=== PATIENT | male | born 1955 | race Caucasian/White ===

== ENCOUNTER 2018-01-26 07:31 | Day surgery (SDC) | payer BC, MEDICARE ==
[2018-01-24 10:35] VITALS: BMI 32.4
[~2018-01-26 07:31] MED LIST: LACTATED RINGERS 1,000 ML IV SCH
[2018-01-26 07:42] VITALS: RESP 16; TEMP 97.8
[2018-01-26 07:54] LABS: Glucose,Whole Blood 126 mg/dL (75-99)
[2018-01-26] MEDS ORDERED: PROPOFOL 10 MG/ML 20 ML VIAL IV ONE (08:41)
[2018-01-26] MEDS ORDERED: LIDOCAINE 1% INJ 10MG/ML (20 ML MDV) ONE (08:41)
--- NOTE | 2018-01-26 08:59 | P.PCN ---
Date of Procedure: 01/26/18 Procedure(s) Performed: BRIEF HISTORY: Patient is a 62-year-old [id number] white male, scheduled for an elective colonoscopy as a part of screening for colorectal neoplasia. PROCEDURE PERFORMED: Colonoscopy with snare polypectomy. PREOPERATIVE DIAGNOSIS: Screening for colon cancer. IV sedation per Anesthesia. PROCEDURE: After informed consent was obtained, the patient, was brought into the endoscopy unit. IV sedation was administered by Anesthesia under continuous monitoring. Digital rectal examination was normal. Initially the Olympus CF- 160 flexible video colonoscope was then inserted in the rectum, gradually advanced into the cecum without any difficulty. Careful examination was performed as the scope was gradually being withdrawn. Ileocecal valve and the appendiceal orifice were visualized and appeared normal. Prep was excellent. Mucosa of the cecum, ascending colon, appeared normal. In the transverse colon there was a 5 mm sessile polyp that was removed by snare polypectomy. Sigmoid: There was a 5 mm polyp that was removed by snare polypectomy. Rest of the transverse colon, descending colon, sigmoid colon, and rectum appeared normal. Retroflexion was performed in the rectum and no lesions were seen. The patient tolerated the procedure well. IMPRESSION: 5 mm transverse colon polyp status post polypectomy 5 mm; polyp status post polypectomy RECOMMENDATIONS: Findings of this examination were discussed with the patient as well as his family. He was advised to follow with the biopsy results. If the biopsy shows adenoma he can have a repeat colonoscopy in 5 years.
[2018-01-26 09:31] VITALS: BP 132/81; PULSE 80
== END 2018-01-26 10:00 | disposition home or self-care (01) ==
LOC: ORWHC2ENDO 07:31
PROVIDERS: ATTEND Internal Medicine Gastroenterology
DX: Z12.11 Encounter for screening for malignant neoplasm of colon (principal); D12.3 Benign neoplasm of transverse colon; K63.5 Polyp of colon; E78.5 Hyperlipidemia, unspecified; E11.9 Type 2 diabetes mellitus without complications; Z79.899 Other long term (current) drug therapy; Z88.8 Allergy status to other drugs, medicaments and biological substances
CPT/HCPCS: 88305; 45385; J2001; J2704

== ENCOUNTER 2018-12-25 13:27 | Inpatient (IN) | payer BC, MEDICARE ==
--- NOTE | 2018-12-25 13:13 | CT ---
EXAMINATION TYPE: CT abdomen pelvis w con DATE OF EXAM: 12/25/2018 COMPARISON: NONE HISTORY: 63-year-old male with right lower quadrant pain x 3 weeks. TECHNIQUE: Contiguous axial scanning of the abdomen and pelvis following administration of 100 ml Iso valentina 300 IV contrast. Delayed images through the kidneys and coronal/sagittal reconstructions perform ed. CT DLP: 1176 mGycm Automated exposure control for dose reduction was used. FINDINGS: Heart normal size with trace anterior pericardial fluid. Lung bases clear without pleural effusion. Liver shows low-density suggesting underlying fatty infiltration. Portal venous system is patent. No biliary ductal dilatation. Gallbladder, adrenal glands, kidneys, spleen, and pancreas appear within normal limits. Scattered [id number] atelectatic calcifications infrarenal abdominal aorta without aneurysm. No dilated small bowel, free fluid, or free air No mesenteric or retroperitoneal lymphadenopathy. Extensive focal inflammatory thickening and fluid within the right lower quadrant measuring 4.0 x 3.9 cm. This is along the inferior aspect of the cecum and likely arises from the appendix. Prominent but nonenlarged 5 mm right lower quadrant mesenteric lymph node. No significant stool burden. No other pericolonic inflammatory change. Prostate gland is very bulky and enlarged measuring 6.6 cm wide and 4.6 cm craniocaudal with central calcifications. Bladder nondistended. No abnormal fluid collection the pelvis or pelvic lymphadenopat hy. Bones: Facet arthropathy lower lumbar spine. Mild degenerative change of the hips. IMPRESSION: 1. ABNORMAL THICKENED SOFT TISSUE ALONG THE INFERIOR CECUM WITH FOCAL PHLEGMON IN THE EXPECTED REGION OF THE APPENDIX. INFLAMMATORY COLON CANCER WITH PHLEGMON WELL ACUTE APPENDICITIS WITH EARLY OR GANIZING ABSCESS ARE CONSIDERATIONS. NO FREE FLUID OR FREE AIR. 2. VERY BULKY AND ENLARGED PROSTATE GLAND MEASURING 6.6 CM. CORRELATING WITH PSA VALUES AND PATIENT'S SYMPTOMS.
--- NOTE | 2018-12-25 14:22 | ED ---
Abdominal Pain HPI <Mitch Butt - Last Filed: 12/25/18 15:42> - General Source: patient Mode of arrival: ambulatory Limitations: no limitations <Leland Negro - Last Filed: 12/25/18 16:31> - General Chief Complaint: Abdominal Pain Stated Complaint: Abd Pain-from CT Time Seen by Provider: 12/25/18 14:10 - History of Present Illness Initial Comments: Patient is a 63-year-old male presenting to the emergency department with a chief complaint of abdominal pain. Patient came to the hospital to obtain a CT of his abdomen and was referred to come to the ED for further evaluation by the radiologist. Patient has ongoing right lower quadrant pain for about 3 weeks. Patient reports the pain is dull most of the time however it is exacerbated with specific positional movements. Patient reports intermittent nausea but no vomiting or diarrhea. Patient reports over the past 2 weeks he has been is having intermittent constipation which has never happened before. Patient reports the pain is not related to oral intake. Patient denies recent weight loss, night sweats fevers or chills. Patient reports he had a colonoscopy last year with no significant findings. (Leland Negro) - Related Data Home Medications Medication Instructions Recorded Confirmed Ascorbic Acid [Vitamin C] 2,000 mg PO DAILY 01/24/18 12/25/18 Atorvastatin [Lipitor] 20 mg PO HS 01/24/18 12/25/18 Garlic 1 tab PO DAILY 01/24/18 12/25/18 Super Beta Prostate 2 cap PO BID 01/24/18 12/25/18 Ubidecarenone [Co Q-10] 200 mg PO HS 01/24/18 12/25/18 Dapagliflozin Propanediol [Farxiga] 10 mg PO DAILY 12/25/18 12/25/18 Allergies Allergy/AdvReac Type Severity Reaction Status Date / Time metformin AdvReac Nausea & Verified 12/25/18 14:29 Vomiting & Diarrhea Review of Systems ROS Other: All systems not noted in ROS Statement are negative. <Mitch Butt - Last Filed: 12/25/18 15:42> ROS Other: All systems not noted in ROS Statement are negative. <Leland Negro - Last Filed: 12/25/18 16:31> ROS Statement: Those systems with pertinent positive or pertinent negative responses have been documented in the HPI. Past Medical History Past Medical History: Diabetes Mellitus, Hyperlipidemia History of Any Multi-Drug Resistant Organisms: None Reported Past Surgical History: Orthopedic Surgery Additional Past Surgical History / Comment(s): PLATE TO LEFT LEG AND THEN REMOVE D. CERVICAL FUSION X 3. RT SHOULDER X 3 THEN REPLACEMENT. LT SHOULDER X 4 AND REVERSE REPLACEMENT. COLLAR BONE SX. COLONOSCOPY Past Anesthesia/Blood Transfusion Reactions: No Reported Reaction Past Psychological History: No Psychological Hx Reported Smoking Status: Former smoker Past Alcohol Use History: None Reported Past Drug Use History: None Reported - Past Family History Father Family Medical History: Cancer <Leland Negro - Last Filed: 12/25/18 16:31> General Exam Limitations: no limitations <Leland Negro - Last Filed: 12/25/18 16:31> Course Vital Signs 12/25/18 13:33 Temperature 97.7 F Pulse Rate 99 Respiratory 18 Rate Blood Pressure 157/106 O2 Sat by Pulse 97 Oximetry Medical Decision Making - Lab Data Result diagrams: 12/25/18 14:39 12/25/18 14:39 <Mitch Butt - Last Filed: 12/25/18 15:42> - Lab Data Result diagrams: 12/25/18 14:39 12/25/18 14:39 <Leland Negro - Last Filed: 12/25/18 16:31> - Medical Decision Making Patient reevaluated by myself, Dr. Butt. Patient does have mild tenderness right lower quadrant. Patient resting comfortably in bed. Patient updated on results and plan. Case was discussed in detail with Dr. Irving, who will consult and recommends medical admission. She is comfortable with [facility] for antibiotics. She requests CVA, alpha-fetoprotein, and PSA. Dr. No has been paged for admission. Case was also discussed with Dr. No, who will admit. Covering for Dr. Emily Gaston. (Mitch Butt) - Lab Data Lab Results 12/25/18 12/25/18 12/25/18 Range/Units 14:39 14:39 14:39 WBC 19.7 H (3.8-10.6) k/uL RBC 5.09 (4.30-5.90) m/uL Hgb 16.6 (13.0-17.5) gm/dL Hct 49.0 (39.0-53.0) % MCV 96.3 (80.0-100.0) fL MCH 32.6 (25.0-35.0) pg MCHC 33.9 (31.0-37.0) g/dL RDW 12.0 (11.5-15.5) % Plt Count 341 (150-450) k/uL Neutrophils % 83 % Lymphocytes % 8 % Monocytes % 5 % Eosinophils % 1 % Basophils % 2 % Neutrophils # 16.3 H (1.3-7.7) k/uL Lymphocytes # 1.5 (1.0-4.8) k/uL Monocytes # 0.9 (0-1.0) k/uL Eosinophils # 0.2 (0-0.7) k/uL Basophils # 0.4 H (0-0.2) k/uL Sodium 137 (137-145) mmol/L Potassium 5.2 H (3.5-5.1) mmol/L Chloride 101 (98-107) mmol/L Carbon Dioxide 24 (22-30) mmol/L Anion Gap 12 mmol/L BUN 15 (9-20) mg/dL Creatinine 0.75 (0.66-1.25) mg/dL Est GFR (CKD-EPI)AfAm >90 (>60 ml/min/1.73 sqM) Est GFR (CKD-EPI)NonAf >90 (>60 ml/min/1.73 sqM) Glucose 125 H (74-99) mg/dL Plasma Lactic Acid Del 1.8 (0.7-2.0) mmol/L Calcium 9.4 (8.4-10.2) mg/dL Total Bilirubin 1.1 (0.2-1.3) mg/dL AST 41 (17-59) U/L ALT 38 (21-72) U/L Alkaline Phosphatase 65 (38-126) U/L Total Protein 7.8 (6.3-8.2) g/dL Albumin 4.0 (3.5-5.0) g/dL Urine Color Urine Appearance (Clear) Urine pH (5.0-8.0) Ur Specific [place] (1.001-1.035) Urine Protein (Negative) Urine Glucose (UA) (Negative) Urine Ketones (Negative) Urine Blood (Negative) Urine Nitrite (Negative) Urine Bilirubin (Negative) Urine Urobilinogen (<2.0) mg/dL Ur Leukocyte Esterase (Negative) 12/25/18 Range/Units 15:10 WBC (3.8-10.6) k/uL RBC (4.30-5.90) m/uL Hgb (13.0-17.5) gm/dL Hct (39.0-53.0) % MCV (80.0-100.0) fL MCH (25.0-35.0) pg MCHC (31.0-37.0) g/dL RDW (11.5-15.5) % Plt Count (150-450) k/uL Neutrophils % % Lymphocytes % % Monocytes % % Eosinophils % % Basophils % % Neutrophils # (1.3-7.7) k/uL Lymphocytes # (1.0-4.8) k/uL Monocytes # (0-1.0) k/uL Eosinophils # (0-0.7) k/uL Basophils # (0-0.2) k/uL Sodium (137-145) mmol/L Potassium (3.5-5.1) mmol/L Chloride (98-107) mmol/L Carbon Dioxide (22-30) mmol/L Anion Gap mmol/L BUN (9-20) mg/dL Creatinine (0.66-1.25) mg/dL Est GFR (CKD-EPI)AfAm (>60 ml/min/1.73 sqM) Est GFR (CKD-EPI)NonAf (>60 ml/min/1.73 sqM) Glucose (74-99) mg/dL Plasma Lactic Acid Del (0.7-2.0) mmol/L Calcium (8.4-10.2) mg/dL Total Bilirubin (0.2-1.3) mg/dL AST (17-59) U/L ALT (21-72) U/L Alkaline Phosphatase (38-126) U/L Total Protein (6.3-8.2) g/dL Albumin (3.5-5.0) g/dL Urine Color Light Yellow Urine Appearance Clear (Clear) Urine pH 6.0 (5.0-8.0) Ur Specific [place] >1.050 H (1.001-1.035) Urine Protein Negative (Negative) Urine Glucose (UA) 4+ H (Negative) Urine Ketones 1+ H (Negative) Urine Blood Negative (Negative) Urine Nitrite Negative (Negative) Urine Bilirubin Negative (Negative) Urine Urobilinogen <2.0 (<2.0) mg/dL Ur Leukocyte Esterase Negative (Negative) Disposition <Mitch Butt - Last Filed: 12/25/18 15:42> Is patient prescribed a controlled substance at d/c from ED?: No Time of Disposition: 16:31 <Leland Negro - Last Filed: 12/25/18 16:31> Clinical Impression: Acute phlegmonous appendicitis Disposition: ADMITTED IP TO THIS HOSP Condition: Stable Instructions (If sedation given, give patient instructions): Acute Abdominal Pain (DC) Additional Instructions: Patient will be admitted Referrals: Max Pickering DO [Primary Care Provider] - 1-2 days
[2018-12-25] MEDS ORDERED: AMPICILLIN-SULBACTAM 3 GM in SODIUM CHLORIDE 0.9% 100 ML IVPB STA (14:52)
[2018-12-25 14:53] LABS: Basophils # (A) 0.4 k/uL (0-0.2); Basophils % (A) 2 %; Eosinophils # (A) 0.2 k/uL (0-0.7); Eosinophils % (A) 1 %; HGB 16.6 gm/dL (13.0-17.5); Lymphocytes # (A) 1.5 k/uL (1.0-4.8); Lymphocytes % (A) 8 %; MCH 32.6 pg (25.0-35.0); MCHC 33.9 g/dL (31.0-37.0); MCV 96.3 fL (80.0-100.0); Mean Platelet Volume 6.2; Monocytes # (A) 0.9 k/uL (0-1.0); Monocytes % (A) 5 %; Neutrophils # (A) 16.3 k/uL (1.3-7.7); Neutrophils % (A) 83 %; Platelet Count 341 k/uL (150-450); RBC 5.09 m/uL (4.30-5.90); WBC 19.7 k/uL (3.8-10.6)
[2018-12-25 14:58] LABS: ALT 38 U/L (21-72); AST 41 U/L (17-59); African American GFR (CKD) >90 (>60 ml/min/1.73 sqM); Alkaline Phosphatase 65 U/L (38-126); Anion Gap 12 mmol/L; Blood Urea Nitrogen 15 mg/dL (9-20); Calcium 9.4 mg/dL (8.4-10.2); Carbon Dioxide 24 mmol/L (22-30); Chloride 101 mmol/L (98-107); Glucose 125 mg/dL (74-99); Potassium 5.2 mmol/L (3.5-5.1); Sodium 137 mmol/L (137-145); Total Bilirubin 1.1 mg/dL (0.2-1.3); Total Protein 7.8 g/dL (6.3-8.2)
[2018-12-25 15:28] LABS: Appearance,Urine Clear (Clear); Bilirubin,Urine Negative (Negative); Blood,Urine Negative (Negative); Color,Urine Light Yellow; Glucose,Urine (UA) 4+ (Negative); Ketones,Urine 1+ (Negative); Leukocyte Esterase,Urine Negative (Negative); Nitrite,Urine Negative (Negative); Protein,Urine Negative (Negative); Urobilinogen,Urine <2.0 mg/dL (<2.0)
[2018-12-25 16:20] LABS: Specific Gravity,Urine >1.050 (1.001-1.035)
[2018-12-25] MEDS ORDERED: MORPHINE SULFATE 4 MG/ML SYRINGE IV PRN (16:29)
[2018-12-25] MEDS ORDERED: HYDROmorphone 0.5 MG/0.5 ML SYRINGE IVP PRN (16:29)
[2018-12-25] MEDS ORDERED: NALOXONE 0.4 MG/ML 1 ML VIAL IV PRN (16:29)
[2018-12-25] MEDS ORDERED: ACETAMINOPHEN TAB 325 MG TAB PO PRN (16:29)
[2018-12-25] MEDS ORDERED: IBUPROFEN 400 MG TAB PO PRN (16:29)
[2018-12-25] MEDS: SODIUM CHLORIDE 0.9% 1,000 ML IV SCH (17:49)
[2018-12-25] MEDS ORDERED: TEMAZEPAM 15 MG CAP PO PRN (18:44)
[2018-12-25] MEDS ORDERED: ALPRAZolam 0.25 MG TAB PO PRN (18:44)
[2018-12-25] MEDS ORDERED: HYDROcodone/APAP 5-325MG 1 EACH TAB PO PRN (18:44)
[2018-12-25] MEDS ORDERED: NON FORMULARY DRUG (Ubidecarenone [Co Q-10] 200 MG) PO SCH (21:00)
[2018-12-25] MEDS ORDERED: SUPER BETA PROSTATE PO SCH (21:00)
[2018-12-25] MEDS: ATORVASTATIN 20 MG TAB PO SCH (21:02)
[2018-12-25] MEDS: PANTOPRAZOLE 40 MG/10 ML VIAL IVP SCH (21:02)
[2018-12-25] MEDS: HEPARIN SODIUM,PORCINE 5,000 UNIT/ML 1 ML VIAL SQ SCH (21:02)
--- NOTE | 2018-12-25 23:07 | HP ---
HISTORY AND PHYSICAL DATE OF SERVICE: 12/25/2018 CHIEF COMPLAINT: Abdominal pain. HISTORY OF PRESENT ILLNESS: This 63 -year-old gentleman with a past medical history of diabetes, hyperlipidemia, history of DJD, being followed Dr. Pickering in the outpatient setting, complaining of right lower quadrant abdominal pain for the last 3 weeks. The pain was increasing in intensity. Patient was initially given outpatient laxatives. Because of lack of improvement, the patient was referred to [facility] Emergency Room and was admitted for further evaluation and treatment. The evaluation in the ER showed white count elevated to 19.7, sodium 137, potassium 5.2. Broad-spectrum IV antibiotics initiated. CT scan showed abnormal thickened soft tissue loop along the inferior cecum with focal phlegmon. The possibilities of lung cancer, also appendicitis with organized abscess also noted. The patient also noted enlarged prostate gland also. The patient did have a colonoscopy with polypectomy about 1 year ago. There is no history of fever, rigors or chills. No history of headache, loss of consciousness or seizures. PAST MEDICAL HISTORY: History of diabetes, hyperlipidemia, history of DJD. MEDICATIONS: Home medications are: 1. Coenzyme Q 200 mg q.h.s. 2. Farxiga 10 mg p.o. daily. 3. Lipitor 20 mg. 4. Vitamin C 2000 g daily. 5. Super beta prostate 2 caps b.i.d. 6. Garlic 1 tablet p.o. b.i.d.. ALLERGIES: METFORMIN. FAMILY HISTORY: History of cancer in the family. SOCIAL HISTORY: Previous history of smoking. No history of current smoking or alcohol intake. REVIEW OF SYSTEMS: ENT: No diminished vision. No diminished hearing. CARDIOVASCULAR: No angina or palpitations. RESPIRATIONS: No cough or hemoptysis. GI: As mentioned earlier. as mentioned earlier. NERVOUS SYSTEM: No numbness or weakness. ALLERGY/IMMUNOLOGY: No asthma or hayfever. MUSCULOSKELETAL as mentioned earlier. HEMATOLOGY/ONCOLOGY: No history of anemia. ENDOCRINE as mentioned earlier, diabetes. CONSTITUTIONAL: As mentioned earlier. DERMATOLOGY: Negative. RHEUMATOLOGY: Negative. PSYCHIATRY: As mentioned earlier. PHYSICAL EXAM: Patient is alert and oriented times three. Pulse 98, blood pressure 150/90, respirations 16, temperature 99 degrees, pulse ox 94% on room air. HEENT: Conjunctivae normal. Oral mucosa moist. NECK is no jugular venous distention. No carotid bruit. No lymph node enlargement. CARDIOVASCULAR: S1, S2 muffled. RESPIRATION: Breath sounds diminished in the bases. A few scattered rhonchi and crackles. ABDOMEN: Soft. Mild diffuse distention. Mild diffuse tenderness especially in the right lower quadrant. No guarding. No rebound tenderness. LEGS no edema. No swelling. NERVOUS SYSTEM: Higher functions as mentioned earlier. Moves all four limbs. No focal deficits. LYMPHATICS: No lymph nodes palpable in the neck, axillae or groin. SKIN: No ulcer. No rash. No bleeding. JOINTS: No active deforming arthropathy. LABS: WBC 19.7, hemoglobin 16.6. ASSESSMENT: 1. Right lower quadrant abdominal pain with abdominal CT scan showing possibly appendicitis with abscess. 2. Rule out chronic cancer with cancer with focal phlegmon. 3. Increased WBC. 4. Increased potassium. 5. Diabetes mellitus type 2. 6. Hyperlipidemia. 7. History of degenerative joint disease. 8. Remote history of nicotine dependence. RECOMMENDATIONS AND DISCUSSION: In this 63-year-old gentleman who presented with multiple medical issues, we will monitor the patient closely, continue the current management and symptomatic treatment. We will initiate broad-spectrum IV antibiotics, symptomatic treatment. Surgical evaluation. Obtain cultures. The prognosis guarded because of multiple complex medical issues. Further recommendations to follow. A copy of dictation being forwarded to Dr. Pickering who is the primary physician. DVT prophylaxis. Incentive spirometer. See orders for details. MMODL / IJN: [id number] /
[2018-12-25] MEDS: PIPERACILLIN-TAZOBACTAM 3.375 GM in SODIUM CHLORIDE 0.9% 100 ML IVPB SCH (23:59)
[2018-12-26 00:54] LABS: Alpha Fetoprotein, Tumor Mkr 3.6 ng/mL (0.0-7.9); Carcinoembryonic Antigen 1.1 ng/mL (0.0-4.9)
[2018-12-26] MEDS: SODIUM CHLORIDE 0.9% 1,000 ML IV SCH ×2 (04:11→17:35)
[2018-12-26] MEDS: NON FORMULARY DRUG (Dapagliflozin Propanediol [Farxiga] 10 MG) PO SCH (07:53)
[2018-12-26] MEDS: PIPERACILLIN-TAZOBACTAM 3.375 GM in SODIUM CHLORIDE 0.9% 100 ML IVPB SCH ×2 (07:53→17:34)
[2018-12-26] MEDS: ASCORBIC ACID 500 MG TAB PO SCH (07:54)
[2018-12-26] MEDS: HEPARIN SODIUM,PORCINE 5,000 UNIT/ML 1 ML VIAL SQ SCH ×2 (07:54→20:28)
[2018-12-26] MEDS: PANTOPRAZOLE 40 MG/10 ML VIAL IVP SCH (07:54)
[2018-12-26 08:54] LABS: Basophils # (A) 0.2 k/uL (0-0.2); Basophils % (A) 1 %; Eosinophils # (A) 0.3 k/uL (0-0.7); Eosinophils % (A) 2 %; HCT 47.9 % (39.0-53.0); HGB 16.1 gm/dL (13.0-17.5); Lymphocytes # (A) 1.4 k/uL (1.0-4.8); Lymphocytes % (A) 9 %; MCH 32.6 pg (25.0-35.0); MCHC 33.7 g/dL (31.0-37.0); MCV 96.8 fL (80.0-100.0); Mean Platelet Volume 6.5; Monocytes # (A) 0.8 k/uL (0-1.0); Monocytes % (A) 5 %; Neutrophils # (A) 13.1 k/uL (1.3-7.7); Neutrophils % (A) 81 %; Platelet Count 353 k/uL (150-450); RBC 4.95 m/uL (4.30-5.90); RDW 11.9 % (11.5-15.5); WBC 16.2 k/uL (3.8-10.6)
[2018-12-26 09:06] LABS: African American GFR (CKD) >90 (>60 ml/min/1.73 sqM); Anion Gap 9 mmol/L; Blood Urea Nitrogen 16 mg/dL (9-20); Calcium 9.3 mg/dL (8.4-10.2); Carbon Dioxide 25 mmol/L (22-30); Chloride 105 mmol/L (98-107); Glucose 110 mg/dL (74-99); Potassium 4.5 mmol/L (3.5-5.1); Sodium 139 mmol/L (137-145)
--- NOTE | 2018-12-26 13:59 | P.GSCN ---
<Lorna Jane - Last Filed: 12/26/18 13:56> History of Present Illness Consult date: 12/26/18 Reason for Consult: Appendicitis Requesting physician: Mitch Butt History of present illness: CHIEF COMPLAINT: Abdominal pain HISTORY OF PRESENT ILLNESS: 63-year-old male who presented to the emergency room after undergoing a computed tomography scan of the abdomen and pelvis. Patient has been complaining of abdominal pain for the last 3 weeks. He states it has been severe in intensity and is localized to the right lower quadrant. He reports his pain is improved this morning and is currently rating it a 1/10. Patient was evaluated by his primary care physician on 2 separate occasions. He states he was initially placed on stool softeners and at his follow-up visit a computed tomography scan was ordered. It is noted that the patient had a colonoscopy performed in December 2017 without evidence for malignancy. PAST MEDICAL HISTORY: See list. PAST SURGICAL HISTORY: See list. MEDICATIONS: See list. ALLERGIES: See list. SOCIAL HISTORY: No illicit drug use. REVIEW OF SYSTEMS: CONSTITUTIONAL: Denies fever or chills. HEENT: Denies blurred vision, vision changes, or eye pain. Denies hemoptysis ENDOCRINE: Denies heat or cold intolerance. CARDIOVASCULAR: Denies chest pain or pressure. RESPIRATORY: No shortness of breath. GASTROINTESTINAL: See HPI for pertinent findings NEURO: Denies history of seizures. PSYCH: No depression or suicidal ideation HEMATOLOGIC: Denies bleeding disorders. LYMPHATIC: The patient denies any lumps and bumps around the neck. GENITOURINARY: Denies any blood in urine or increased urinary frequency. MUSCULOSKELETAL: Denies myalgias. Denies joint swelling. Denies decreased range of motion beyond patients baseline. SKIN: Denies pruitis. Denies rash. PHYSICAL EXAM: VITAL SIGNS: Reviewed GENERAL: Well-developed in no acute distress. HEENT: No sclera icterus. Extraocular movements grossly intact. Moist buccal mucosa. Head is atraumatic, normocephalic. Hears conversational speech. No nasal drainage. NECK: Supple without lymphadenopathy. CHEST: Non-labored respirations and equal bilateral excursions. CARDIOVASCULAR: Regular rate with regular rhythm. Palpable 2+ radial pulses. ABDOMEN: Soft. Nondistended. Minimal tenderness to palpation of right lower quadrant. No peritoneal signs. MUSCULOSKELETAL: No clubbing, cyanosis or edema. NEUROLOGIC: No focal or lateralizing signs. Cranial nerves II through XII grossly intact. PSYCH: Appropriate affect. Alert and oriented to person, place and time. SKIN: Well perfused. Good skin turgor. LABORATORY DATA: WBC on admission 19.7. Repeat 16.2. IMAGING: CT abdomen and pelvis: Abnormal thickened soft tissue along the inferior cecum with focal phlegmon in the expected region of the appendix. Inflammatory colon cancer with phlegmon as well as acute appendicitis with early abscess are considerations. No free fluid or free air. ASSESSMENT: 1. Abdominal pain 2. Acute ruptured appendicitis PLAN: Patient examined with Dr. Mojica. Due to the face that patient had colonoscopy performed last year, possibility of inflammatory colon cancer is of low suspicion. Patient likely with acute ruptured appendicitis. He will be maintained on IV antibiotics. Infectious disease will be consulted. Begin clear liquid diet. Patient will undergo surgical intervention outpatient in approximately 4 weeks once acute inflammation has resolved. Nurse practitioner note has been reviewed by physician. Signing provider agrees with the documented findings, assessment, and plan of care. Past Medical History Past Medical History: Diabetes Mellitus, Hyperlipidemia History of Any Multi-Drug Resistant Organisms: None Reported Past Surgical History: Orthopedic Surgery Additional Past Surgical History / Comment(s): PLATE TO LEFT LEG AND THEN REMOVED. CERVICAL FUSION X 3. RT SHOULDER X 3 THEN REPLACEMENT. LT SHOULDER X 4 AND REVERSE REPLACEMENT. COLLAR BONE SX. COLONOSCOPY Past Anesthesia/Blood Transfusion Reactions: No Reported Reaction Past Psychological History: No Psychological Hx Reported Smoking Status: Former smoker Past Alcohol Use History: None Reported Additional Past Alcohol Use History / Comment(s): QUIT SMOKING 30 YEARS AGO-WAS UP TO 3 PPD. RECOVERED ALCOHOLIC Past Drug Use History: None Reported - Past Family History Father Family Medical History: Cancer Medications and Allergies Home Medications Medication Instructions Recorded Confirmed Type Ascorbic Acid [Vitamin C] 2,000 mg PO DAILY 01/24/18 12/25/18 History Atorvastatin [Lipitor] 20 mg PO HS 01/24/18 12/25/18 History Garlic 1 tab PO DAILY 01/24/18 12/25/18 History Super Beta Prostate 2 cap PO BID 01/24/18 12/25/18 History Ubidecarenone [Co Q-10] 200 mg PO HS 01/24/18 12/25/18 History Dapagliflozin Propanediol [Farxiga] 10 mg PO DAILY 12/25/18 12/25/18 History Allergies Allergy/AdvReac Type Severity Reaction Status Date / Time metformin AdvReac Nausea & Verified 12/25/18 14:29 Vomiting & Diarrhea Surgical - Exam Vital Signs Temp Pulse Resp BP Pulse Ox 97.7 F 99 18 157/106 97 12/25/18 13:33 12/25/18 13:33 12/25/18 13:33 12/25/18 13:33 12/25/18 13:33 Results - Labs 12/26/18 08:39 12/26/18 08:39 Abnormal Lab Results - Last 24 Hours (Table) 12/25/18 12/25/18 12/25/18 Range/Units 14:39 14:39 15:10 WBC 19.7 H (3.8-10.6) k/uL Neutrophils # 16.3 H (1.3-7.7) k/uL Basophils # 0.4 H (0-0.2) k/uL Potassium 5.2 H (3.5-5.1) mmol/L Glucose 125 H (74-99) mg/dL Ur Specific [place] >1.050 H (1.001-1.035) Urine Glucose (UA) 4+ H (Negative) Urine Ketones 1+ H (Negative) 12/26/18 12/26/18 Range/Units 08:39 08:39 WBC 16.2 H (3.8-10.6) k/uL Neutrophils # 13.1 H (1.3-7.7) k/uL Basophils # (0-0.2) k/uL Potassium (3.5-5.1) mmol/L Glucose 110 H (74-99) mg/dL Ur Specific [place] (1.001-1.035) Urine Glucose (UA) (Negative) Urine Ketones (Negative) Diabetes panel 12/25/18 12/26/18 Range/Units 14:39 08:39 Sodium 137 139 (137-145) mmol/L Potassium 5.2 H 4.5 (3.5-5.1) mmol/L Chloride 101 105 (98-107) mmol/L Carbon Dioxide 24 25 (22-30) mmol/L BUN 15 16 (9-20) mg/dL Creatinine 0.75 0.85 (0.66-1.25) mg/dL Glucose 125 H 110 H (74-99) mg/dL Calcium 9.4 9.3 (8.4-10.2) mg/dL AST 41 (17-59) U/L ALT 38 (21-72) U/L Alkaline Phosphatase 65 (38-126) U/L Total Protein 7.8 (6.3-8.2) g/dL Albumin 4.0 (3.5-5.0) g/dL Calcium panel 12/25/18 12/26/18 Range/Units 14:39 08:39 Calcium 9.4 9.3 (8.4-10.2) mg/dL Albumin 4.0 (3.5-5.0) g/dL Pituitary panel 12/25/18 12/26/18 Range/Units 14:39 08:39 Sodium 137 139 (137-145) mmol/L Potassium 5.2 H 4.5 (3.5-5.1) mmol/L Chloride 101 105 (98-107) mmol/L Carbon Dioxide 24 25 (22-30) mmol/L BUN 15 16 (9-20) mg/dL Creatinine 0.75 0.85 (0.66-1.25) mg/dL Glucose 125 H 110 H (74-99) mg/dL Calcium 9.4 9.3 (8.4-10.2) mg/dL Adrenal panel 12/25/18 12/26/18 Range/Units 14:39 08:39 Sodium 137 139 (137-145) mmol/L Potassium 5.2 H 4.5 (3.5-5.1) mmol/L Chloride 101 105 (98-107) mmol/L Carbon Dioxide 24 25 (22-30) mmol/L BUN 15 16 (9-20) mg/dL Creatinine 0.75 0.85 (0.66-1.25) mg/dL Glucose 125 H 110 H (74-99) mg/dL Calcium 9.4 9.3 (8.4-10.2) mg/dL Total Bilirubin 1.1 (0.2-1.3) mg/dL AST 41 (17-59) U/L ALT 38 (21-72) U/L Alkaline Phosphatase 65 (38-126) U/L Total Protein 7.8 (6.3-8.2) g/dL Albumin 4.0 (3.5-5.0) g/dL Assessment and Plan (1) Ruptured appendicitis Current Visit: Yes Status: Acute Code(s): K35.32 - ACUTE APPENDICITIS WITH PERF AND LOC PERITONITIS, W/O ABSCS SNOMED Code(s): 50891573 (2) Abdominal pain Current Visit: Yes Status: Acute Code(s): R10.9 - UNSPECIFIED ABDOMINAL PAIN SNOMED Code(s): 96266956 <GalinaKelley N - Last Filed: 12/26/18 19:06> History of Present Illness History of present illness: Patient seen and evaluated with medical records reviewed in detail. Previous colonoscopy reviewed with clear finding of the appendiceal orifice and cecum negative from polyps at that time. Clinical history consistent with ruptured appendicitis with phlegmon. Recommend at minimum 3+ weeks of antibiotics per direction of infectious disease. No surgical intervention at this time. May be stable for discharge within 48 to 72 hours pending antibiotic management. Full liquid diet in the interim. Surgical - Exam Vital Signs Temp Pulse Resp BP Pulse Ox 97.7 F 99 18 157/106 97 12/25/18 13:33 12/25/18 13:33 12/25/18 13:33 12/25/18 13:33 12/25/18 13:33 Results - Labs 12/26/18 08:39 12/26/18 08:39 Abnormal Lab Results - Last 24 Hours (Table) 12/26/18 12/26/18 Range/Units 08:39 08:39 WBC 16.2 H (3.8-10.6) k/uL Neutrophils # 13.1 H (1.3-7.7) k/uL Glucose 110 H (74-99) mg/dL Microbiology - Last 24 Hours (Table) 12/25/18 15:00 Blood Culture - Preliminary Blood No Growth after 24 hours Diabetes panel 12/26/18 Range/Units 08:39 Sodium 139 (137-145) mmol/L Potassium 4.5 (3.5-5.1) mmol/L Chloride 105 (98-107) mmol/L Carbon Dioxide 25 (22-30) mmol/L BUN 16 (9-20) mg/dL Creatinine 0.85 (0.66-1.25) mg/dL Glucose 110 H (74-99) mg/dL Calcium 9.3 (8.4-10.2) mg/dL Calcium panel 12/26/18 Range/Units 08:39 Calcium 9.3 (8.4-10.2) mg/dL Pituitary panel 12/26/18 Range/Units 08:39 Sodium 139 (137-145) mmol/L Potassium 4.5 (3.5-5.1) mmol/L Chloride 105 (98-107) mmol/L Carbon Dioxide 25 (22-30) mmol/L BUN 16 (9-20) mg/dL Creatinine 0.85 (0.66-1.25) mg/dL Glucose 110 H (74-99) mg/dL Calcium 9.3 (8.4-10.2) mg/dL Adrenal panel 12/26/18 Range/Units 08:39 Sodium 139 (137-145) mmol/L Potassium 4.5 (3.5-5.1) mmol/L Chloride 105 (98-107) mmol/L Carbon Dioxide 25 (22-30) mmol/L BUN 16 (9-20) mg/dL Creatinine 0.85 (0.66-1.25) mg/dL Glucose 110 H (74-99) mg/dL Calcium 9.3 (8.4-10.2) mg/dL
--- NOTE | 2018-12-26 16:48 | PN ---
PROGRESS NOTE DATE OF SERVICE: 12/26/2018 This 63-year-old gentleman, admitted with significant abdominal pain, is being evaluated for possible appendicitis, perforation versus malignancy. Surgery is following the patient. IV antibiotics have been recommended. No chest pain. No palpitations. No fever. PHYSICAL EXAMINATION: Alert and oriented x3. Pulse 91, blood pressure 136/80, respiration 16, temperature 98.1, pulse ox 93% on room air. HEENT: Conjunctivae normal. NECK: No jugular venous distention. CARDIOVASCULAR SYSTEM: S1, S2 muffled. RESPIRATORY SYSTEM: Breath sounds diminished at the bases. No rhonchi. No crackles. ABDOMEN: Soft. Mild diffuse tenderness in the right lower quadrant. No guarding. No rigidity. No mass palpable. LEGS: No edema. No swelling. NERVOUS SYSTEM: No focal deficit. LABS: WBC 16.2, hemoglobin 16.1. ASSESSMENT: 1. Right lower quadrant abdominal pain showing possibly appendicitis rupture with abscess. 2. Rule out colonic cancer with focal phlegmon. 3. Increased white count. 4. Increased potassium. 5. Diabetes mellitus, type 2. 6. Hyperlipidemia. 7. History of degenerative joint disease. 8. Remote history of nicotine dependence. 9. History of colonoscopy with polypectomy. RECOMMENDATIONS AND DISCUSSION: I recommend to continue current medications, continue with the monitoring, symptomatic treatment. Otherwise at this time continue the antibiotics. Closely follow with Surgery. Further recommendations to follow. MMODL / IJN: [id number] /
[2018-12-26] MEDS: ATORVASTATIN 20 MG TAB PO SCH (20:28)
--- NOTE | 2018-12-26 23:47 | P.CONS ---
History of Present Illness - Reason for Consult Consult date: 12/26/18 PeriAppendiceal abscess Requesting physician: Kelley Mojica - Chief Complaint Right lower quadrant abdominal pain 3 weeks - History of Present Illness Patient is 63 year old male started having problem with abdominal pain which has been mostly localized in the right lower quadrant area with associated constipation patient initially did have a fever with it patient has been evaluated outpatient setting by his primary care physician and the patient has been treated for his underlying constipation to be the cause of his pain the patient constipation resolved however his pain persist hence on a follow-up visit a CT of abdominal pelvis was recommended which was completed at [facility] on 12/25/2018 CT abdominal pelvis was suspicious for possible periappendical abscess or malignancy for the patient was sent to the ER and subsequently admitted to the hospital patient did have elevated white count but no fever the patient was started on Zosyn and surgery saw the patient and recommended no surgical intervention at this point rather 3 week course of IV metabolic therapy for which infectious disease has been consulted for further management. The patient had pain to the right lower quadrant area which has been there for about 3 weeks now initially severity almost 7-8 out of 10 and he started about 1-2 out of 10 and it hurts only when he touches the area patient denies any nausea no vomiting no diarrhea and no constipation did have fever initially but no further fever at this point Review of Systems Positive point has been mentioned in the HPI rest of the systems are negative Past Medical History Past Medical History: Diabetes Mellitus, Hyperlipidemia History of Any Multi-Drug Resistant Organisms: None Reported Past Surgical History: Orthopedic Surgery Additional Past Surgical History / Comment(s): PLATE TO LEFT LEG AND THEN REMOVED. CERVICAL FUSION X 3. RT SHOULDER X 3 THEN REPLACEMENT. LT SHOULDER X 4 AND REVERSE REPLACEMENT. COLLAR BONE SX. COLONOSCOPY Past Anesthesia/Blood Transfusion Reactions: No Reported Reaction Past Psychological History: No Psychological Hx Reported Smoking Status: Former smoker Past Alcohol Use History: None Reported Additional Past Alcohol Use History / Comment(s): QUIT SMOKING 30 YEARS AGO-WAS UP TO 3 PPD. RECOVERED ALCOHOLIC Past Drug Use History: None Reported - Past Family History Father Family Medical History: Cancer Medications and Allergies Home Medications Medication Instructions Recorded Confirmed Type Ascorbic Acid [Vitamin C] 2,000 mg PO DAILY 01/24/18 12/25/18 History Atorvastatin [Lipitor] 20 mg PO HS 01/24/18 12/25/18 History Garlic 1 tab PO DAILY 01/24/18 12/25/18 History Super Beta Prostate 2 cap PO BID 01/24/18 12/25/18 History Ubidecarenone [Co Q-10] 200 mg PO HS 01/24/18 12/25/18 History Dapagliflozin Propanediol [Farxiga] 10 mg PO DAILY 12/25/18 12/25/18 History Allergies Allergy/AdvReac Type Severity Reaction Status Date / Time metformin AdvReac Nausea & Verified 12/25/18 14:29 Vomiting & Diarrhea Physical Exam Vitals: Vital Signs Temp Pulse Pulse Resp BP BP Pulse Ox 12/26/18 08:00 90 16 12/26/18 06:20 98.2 F 90 16 115/72 96 12/25/18 22:12 98.3 F 90 16 142/73 96 12/25/18 17:50 99.0 F 98 16 154/91 95 12/25/18 16:36 100 18 143/83 98 Intake and Output 12/25/18 12/26/18 12/26/18 22:59 06:59 14:59 Other: Voiding Method Toilet # Voids 2 1 # Bowel Movements 1 GENERAL DESCRIPTION: Middle-aged male lying in bed, no distress. No tachypnea or accessory muscle of respiration use. HEENT: Shows Pallor , no scleral icterus. Oral mucous membrane is dry. No pharyngeal erythema or thrush NECK: Trachea central, no thyromegaly. LUNGS: Unlabored breathing. Clear to auscultation anteriorly. No wheeze or crackle. HEART: S1, S2, regular rate and rhythm. No loud murmur ABDOMEN: Soft, mild right lower quadrant tenderness , guarding or rigidity, no organomegaly EXTREMITIES: No edema of feet. SKIN: No rash, no masses palpable. NEUROLOGICAL: The patient is awake, alert, oriented x3, mood and affect normal. Results CBC & Chem 7: 12/26/18 08:39 12/26/18 08:39 Labs: Abnormal Lab Results - Last 24 Hours (Table) 12/25/18 12/25/18 12/25/18 Range/Units 14:39 14:39 15:10 WBC 19.7 H (3.8-10.6) k/uL Neutrophils # 16.3 H (1.3-7.7) k/uL Basophils # 0.4 H (0-0.2) k/uL Potassium 5.2 H (3.5-5.1) mmol/L Glucose 125 H (74-99) mg/dL Ur Specific [place] >1.050 H (1.001-1.035) Urine Glucose (UA) 4+ H (Negative) Urine Ketones 1+ H (Negative) 12/26/18 12/26/18 Range/Units 08:39 08:39 WBC 16.2 H (3.8-10.6) k/uL Neutrophils # 13.1 H (1.3-7.7) k/uL Basophils # (0-0.2) k/uL Potassium (3.5-5.1) mmol/L Glucose 110 H (74-99) mg/dL Ur Specific [place] (1.001-1.035) Urine Glucose (UA) (Negative) Urine Ketones (Negative) Assessment and Plan Assessment: 1-patient with history of of abdominal pain 3 weeks in this patient who did have abnormal CT concerning for ruptured appendicitis and phelgemous changes, CT to be reviewed with the radiologist and there is any fluid that could be drained a CT-guided to help with the microbiological diagnosis 2-we will place a mid line for outpatient IV antibiotic therapy and the director case management to work on adequate position for home IV antibiotics (1) Acute phlegmonous appendicitis Current Visit: Yes Status: Acute Code(s): K35.890 - OTHER ACUTE APPENDICITIS WITHOUT PERFORATION OR GANGRENE SNOMED Code(s): 589567094 Plan: 1-Zosyn 3.7 mg every 8 hours, with a possible transition to Invanz 1 g daily for 2-3 weeks depending upon clinical response 2-we'll check a baseline CRP level 3-IV fluids We will follow on clinical condition and cultures to further adjust medication if needed Thank you for this consultation will follow this patient with you
[2018-12-27] MEDS: PIPERACILLIN-TAZOBACTAM 3.375 GM in SODIUM CHLORIDE 0.9% 100 ML IVPB SCH ×3 (00:47→16:53)
[2018-12-27] MEDS: PANTOPRAZOLE 40 MG TABLET PO SCH (07:57)
[2018-12-27] MEDS: ASCORBIC ACID 500 MG TAB PO SCH (07:57)
[2018-12-27] MEDS: HEPARIN SODIUM,PORCINE 5,000 UNIT/ML 1 ML VIAL SQ SCH ×2 (07:58→20:19)
[2018-12-27] MEDS: SODIUM CHLORIDE 0.9% 1,000 ML IV SCH ×2 (08:00→22:03)
[2018-12-27] MEDS: NON FORMULARY DRUG (Dapagliflozin Propanediol [Farxiga] 10 MG) PO SCH (08:00)
[2018-12-27 08:59] LABS: Basophils # (A) 0.3 k/uL (0-0.2); Basophils % (A) 2 %; Eosinophils # (A) 0.2 k/uL (0-0.7); Eosinophils % (A) 1 %; HCT 49.9 % (39.0-53.0); HGB 16.3 gm/dL (13.0-17.5); Lymphocytes # (A) 1.2 k/uL (1.0-4.8); Lymphocytes % (A) 8 %; MCH 31.6 pg (25.0-35.0); MCHC 32.6 g/dL (31.0-37.0); MCV 96.8 fL (80.0-100.0); Monocytes # (A) 0.9 k/uL (0-1.0); Monocytes % (A) 6 %; Neutrophils # (A) 12.5 k/uL (1.3-7.7); Neutrophils % (A) 82 %; Platelet Count 402 k/uL (150-450); RBC 5.15 m/uL (4.30-5.90); RDW 12.1 % (11.5-15.5); WBC 15.3 k/uL (3.8-10.6)
[2018-12-27 09:03] LABS: African American GFR (CKD) >90 (>60 ml/min/1.73 sqM); Anion Gap 11 mmol/L; Blood Urea Nitrogen 13 mg/dL (9-20); Calcium 9.4 mg/dL (8.4-10.2); Carbon Dioxide 24 mmol/L (22-30); Chloride 105 mmol/L (98-107); Glucose 139 mg/dL (74-99); Potassium 4.3 mmol/L (3.5-5.1); Sodium 140 mmol/L (137-145)
--- NOTE | 2018-12-27 11:57 | P.PN ---
<Lorna Jane - Last Filed: 12/27/18 11:54> Subjective Progress Note Date: 12/27/18 CHIEF COMPLAINT: Abdominal pain HISTORY OF PRESENT ILLNESS: Patient examined this morning at the bedside. Patient denies abdominal pain. He is tolerating full liquid diet. Denies nausea or vomiting. Vital signs stable. He is afebrile. WBC 15.3. PHYSICAL EXAM: VITAL SIGNS: Reviewed GENERAL: Well-developed in no acute distress. HEENT: No sclera icterus. Extraocular movements grossly intact. Moist buccal mucosa. Head is atraumatic, normocephalic. Hears conversational speech. No nasal drainage. NECK: Supple without lymphadenopathy. CHEST: Non-labored respirations and equal bilateral excursions. CARDIOVASCULAR: Regular rate with regular rhythm. Palpable 2+ radial pulses. ABDOMEN: Soft. Nondistended. Minimal tenderness to palpation of right lower quadrant. No peritoneal signs. MUSCULOSKELETAL: No clubbing, cyanosis or edema. NEUROLOGIC: No focal or lateralizing signs. Cranial nerves II through XII grossly intact. PSYCH: Appropriate affect. Alert and oriented to person, place and time. SKIN: Well perfused. Good skin turgor. ASSESSMENT: 1. Abdominal pain 2. Acute ruptured appendicitis PLAN: Advance diet to soft diet Patient received midline IV. Continue IV antibiotics at discharge per Dr. Hartman Patient will undergo surgical intervention outpatient in approximately 4 weeks once acute inflammation has resolved. Nurse practitioner note has been reviewed by physician. Signing provider agrees with the documented findings, assessment, and plan of care. Objective - Vital Signs Vital signs: Vital Signs Temp 98.3 F 12/27/18 06:09 Pulse 87 12/27/18 06:09 Resp 16 12/27/18 08:00 BP 143/79 12/27/18 06:09 Pulse Ox 96 12/27/18 06:09 Intake & Output 12/26/18 12/27/18 12/27/18 18:59 06:59 18:59 Intake Total 200 Balance 200 Intake: Oral 200 Other: Voiding Method Toilet Toilet # Voids 2 2 - Labs CBC & Chem 7: 12/27/18 07:40 12/27/18 07:40 Labs: Abnormal Lab Results - Last 24 Hours (Table) 12/27/18 12/27/18 Range/Units 07:40 07:40 WBC 15.3 H (3.8-10.6) k/uL Neutrophils # 12.5 H (1.3-7.7) k/uL Basophils # 0.3 H (0-0.2) k/uL Glucose 139 H (74-99) mg/dL Microbiology - Last 24 Hours (Table) 12/25/18 15:00 Blood Culture - Preliminary Blood No Growth after 24 hours Assessment and Plan (1) Ruptured appendicitis Status: Acute Code(s): K35.32 - ACUTE APPENDICITIS WITH PERF AND LOC PERITONITIS, W/O ABSCS SNOMED Code(s): 30665307 (2) Abdominal pain Status: Acute Code(s): R10.9 - UNSPECIFIED ABDOMINAL PAIN SNOMED Code(s): 80599479 <Kelley Mojica N - Last Filed: 12/28/18 18:20> Subjective As above, continue with antibiotics. Outpatient interval appendectomy described Objective - Vital Signs Vital signs: Vital Signs Temp 98.5 F 12/28/18 04:39 Pulse 79 12/28/18 04:39 Resp 20 12/28/18 04:39 BP 142/80 12/28/18 04:39 Pulse Ox 97 12/28/18 04:39 Intake & Output 12/27/18 12/28/18 12/28/18 18:59 06:59 18:59 Intake Total 300 320 Balance 300 320 Intake: Oral 300 320 Other: Voiding Method Toilet # Voids 3 1 - Labs CBC & Chem 7: 12/28/18 09:01 12/28/18 09:01 Labs: Abnormal Lab Results - Last 24 Hours (Table) 12/28/18 12/28/18 12/28/18 Range/Units 09:01 09:01 09:01 WBC 17.0 H (3.8-10.6) k/uL Neutrophils # 13.6 H (1.3-7.7) k/uL Glucose 227 H (74-99) mg/dL C-Reactive Protein 50.1 H (<10.0) mg/L Microbiology - Last 24 Hours (Table) 12/25/18 15:00 Blood Culture - Preliminary Blood No Growth after 72 hours
--- NOTE | 2018-12-27 16:49 | PN ---
PROGRESS NOTE DATE OF SERVICE: 12/27/2018 This 63-year-old gentleman who was admitted with right lower quadrant abdominal pain had possibly perforated appendicitis, appendix with some abscess. The patient is on broad-spectrum IV antibiotics. No chest pain. No palpitations. Surgery is following the patient. Surgery is planning outpatient surgery and Infectious Disease are planning outpatient IV antibiotics and subsequently surgery subsequently. No chest pain. No palpitation. Suspicion of malignancy low per surgery. EXAM: Alert and oriented x3. Pulse is 87. Blood pressure 143/79. Respirations 16. Temperature 98.3, pulse ox 98% on room air. HEENT: Conjunctivae normal. NECK: No JVD. CARDIOVASCULAR: S12, S2 muffled. RESPIRATION: Breath sounds diminished in the bases. No rhonchi. No crackles. ABDOMEN is soft, minimal diffuse discomfort on the right lower quadrant. No guarding. No rigidity. No mass palpable. LEGS are no edema. No swelling. CENTRAL NERVOUS SYSTEM: No focal deficits. LABS: WBC 15.2, hemoglobin 16.3. ASSESSMENT: 1. Right lower quadrant abdominal pain showing possible acute appendicitis, ruptured with abscess. 2. Rule out underlying colon cancer with focal phlegmon. 3. Increased WBC. 4. Increased potassium. 5. Diabetes mellitus type 2. 6. Hyperlipidemia. 7. History of degenerative joint disease. 8. Remote history of nicotine dependence. 9. History of colonoscopy with polypectomy. RECOMMENDATIONS AND DISCUSSION: Recommend to continue current medications, management and symptomatic treatment. Otherwise, closely follow with Infectious Disease and Surgery. IV antibiotics. Further recommendations to follow. MMODL / IJN: [id number] /
--- NOTE | 2018-12-27 19:31 | PN ---
PROGRESS NOTE DATE OF SERVICE: 12/27/2018. REASON FOR FOLLOWUP: Ruptured appendicitis with abdominal abscess/ . INTERVAL HISTORY: The patient is currently afebrile. The patient is breathing comfortably. The patient denies having any chest pain or cough. Abdominal pain has improved. No nausea, vomiting and no diarrhea. PHYSICAL EXAMINATION: Blood pressure 126/88 with a pulse of 97, temperature 98.2. She is 96% on room air. General description is a middle-aged male up in the bed in no distress. Respiratory system: Unlabored breathing. Clear to auscultation anteriorly. Heart S1, S2. Regular rate and rhythm. Abdomen soft. No tenderness. EXTREMITIES: No edema of the feet. LABS: White count 15.3 with a creatinine 0.88. DIAGNOSTIC IMPRESSION AND PLAN: Patient with perforated appendicitis with abdominal but no definite abscess. The CT was reviewed with radiologist. No drainable fluid. The patient is currently covered with Zosyn. Transition to Invanz 1 g daily for 2 weeks with close outpatient followup. He already has got the midline. MMODL / IJN: [id number] /
[2018-12-27] MEDS: ATORVASTATIN 20 MG TAB PO SCH (20:19)
--- NOTE | 2018-12-27 21:00 | P.PN ---
Progress Note - Text Progress Note Date: 12/27/18 Patient tolerating soft diet. Denies abdominal pain. Interval appendectomy described. Patient may be discharged home tomorrow as long as what vessel count improves. Will follow-up in the office within 2 weeks. Will need repeat outside computed tomography scan.
[2018-12-28] MEDS: PIPERACILLIN-TAZOBACTAM 3.375 GM in SODIUM CHLORIDE 0.9% 100 ML IVPB SCH ×2 (00:09→06:45)
[2018-12-28 00:12] VITALS: RESP 20
[2018-12-28 04:40] VITALS: BP 142/80; PULSE 79; TEMP 98.5
[2018-12-28] MEDS: NON FORMULARY DRUG (Dapagliflozin Propanediol [Farxiga] 10 MG) PO SCH (06:46)
[2018-12-28] MEDS: PANTOPRAZOLE 40 MG TABLET PO SCH (08:08)
[2018-12-28] MEDS: HEPARIN SODIUM,PORCINE 5,000 UNIT/ML 1 ML VIAL SQ SCH (08:08)
[2018-12-28] MEDS: ASCORBIC ACID 500 MG TAB PO SCH (08:08)
[2018-12-28] MEDS ORDERED: ERTAPENEM 1 GM in SODIUM CHLORIDE 0.9% 50 ML IVPB SCH (09:00)
[2018-12-28 09:33] LABS: Basophils # (A) 0.1 k/uL (0-0.2); Basophils % (A) 0 %; Eosinophils # (A) 0.3 k/uL (0-0.7); Eosinophils % (A) 2 %; HCT 46.4 % (39.0-53.0); HGB 15.5 gm/dL (13.0-17.5); Lymphocytes % (A) 12 %; MCH 32.5 pg (25.0-35.0); MCHC 33.4 g/dL (31.0-37.0); MCV 97.4 fL (80.0-100.0); Mean Platelet Volume 6.1; Monocytes # (A) 0.8 k/uL (0-1.0); Monocytes % (A) 5 %; Neutrophils # (A) 13.6 k/uL (1.3-7.7); Neutrophils % (A) 80 %; Platelet Count 375 k/uL (150-450); RBC 4.76 m/uL (4.30-5.90); RDW 11.9 % (11.5-15.5)
[2018-12-28 09:44] LABS: African American GFR (CKD) >90 (>60 ml/min/1.73 sqM); Anion Gap 12 mmol/L; Blood Urea Nitrogen 12 mg/dL (9-20); Calcium 9.2 mg/dL (8.4-10.2); Carbon Dioxide 23 mmol/L (22-30); Chloride 105 mmol/L (98-107); Glucose 227 mg/dL (74-99); Potassium 4.3 mmol/L (3.5-5.1); Sodium 140 mmol/L (137-145)
--- NOTE | 2018-12-28 12:18 | P.PN ---
<Lorna Jane A - Last Filed: 12/28/18 12:17> Subjective Progress Note Date: 12/28/18 CHIEF COMPLAINT: Abdominal pain HISTORY OF PRESENT ILLNESS: Patient examined this morning at the bedside. Patient denies abdominal pain. He is tolerating diet. Denies nausea or vomiting. Vital signs stable. He is afebrile. WBC slightly increased to 17.0. Vital signs stable. He is afebrile. PHYSICAL EXAM: VITAL SIGNS: Reviewed GENERAL: Well-developed in no acute distress. HEENT: No sclera icterus. Extraocular movements grossly intact. Moist buccal mucosa. Head is atraumatic, normocephalic. Hears conversational speech. No nasal drainage. NECK: Supple without lymphadenopathy. CHEST: Non-labored respirations and equal bilateral excursions. CARDIOVASCULAR: Regular rate with regular rhythm. Palpable 2+ radial pulses. ABDOMEN: Soft. Nondistended. Nontender. No peritoneal signs. MUSCULOSKELETAL: No clubbing, cyanosis or edema. NEUROLOGIC: No focal or lateralizing signs. Cranial nerves II through XII grossly intact. PSYCH: Appropriate affect. Alert and oriented to person, place and time. SKIN: Well perfused. Good skin turgor. ASSESSMENT: 1. Abdominal pain 2. Acute ruptured appendicitis PLAN: Continue diet as tolerated Continue IV antibiotics at discharge per Dr. Hartman Patient will undergo surgical intervention outpatient in approximately 4 weeks once acute inflammation has resolved. Nurse practitioner note has been reviewed by physician. Signing provider agrees with the documented findings, assessment, and plan of care. Objective - Vital Signs Vital signs: Vital Signs Temp 98.5 F 12/28/18 04:39 Pulse 79 12/28/18 04:39 Resp 20 12/28/18 04:39 BP 142/80 12/28/18 04:39 Pulse Ox 97 12/28/18 04:39 Intake & Output 12/27/18 12/28/18 12/28/18 18:59 06:59 18:59 Intake Total 300 320 Balance 300 320 Intake: Oral 300 320 Other: Voiding Method Toilet # Voids 3 1 - Labs CBC & Chem 7: 12/28/18 09:01 12/28/18 09:01 Labs: Abnormal Lab Results - Last 24 Hours (Table) 12/28/18 12/28/18 Range/Units 09: 09:01 WBC 17.0 H (3.8-10.6) k/uL Neutrophils # 13.6 H (1.3-7.7) k/uL Glucose 227 H (74-99) mg/dL Microbiology - Last 24 Hours (Table) 12/25/18 15:00 Blood Culture - Preliminary Blood No Growth after 48 hours Assessment and Plan (1) Ruptured appendicitis Status: Acute Code(s): K35.32 - ACUTE APPENDICITIS WITH PERF AND LOC PERITONITIS, W/O ABSCS SNOMED Code(s): 16373725 (2) Abdominal pain Status: Acute Code(s): R10.9 - UNSPECIFIED ABDOMINAL PAIN SNOMED Code(s): 44885665 <Kelley Mojica N - Last Filed: 12/28/18 18:20> Subjective As above, agreeable with discharge Objective - Vital Signs Vital signs: Vital Signs Temp 98.5 F 12/28/18 04:39 Pulse 79 12/28/18 04:39 Resp 20 12/28/18 04:39 BP 142/80 12/28/18 04:39 Pulse Ox 97 12/28/18 04:39 Intake & Output 12/27/18 12/28/18 12/28/18 18:59 06:59 18:59 Intake Total 300 320 Balance 300 320 Intake: Oral 300 320 Other: Voiding Method Toilet # Voids 3 1 - Labs CBC & Chem 7: 12/28/18 09:01 12/28/18 09:01 Labs: Abnormal Lab Results - Last 24 Hours (Table) 12/28/18 12/28/18 12/28/18 Range/Units 09:01 09:01 09:01 WBC 17.0 H (3.8-10.6) k/uL Neutrophils # 13.6 H (1.3-7.7) k/uL Glucose 227 H (74-99) mg/dL C-Reactive Protein 50.1 H (<10.0) mg/L Microbiology - Last 24 Hours (Table) 12/25/18 15:00 Blood Culture - Preliminary Blood No Growth after 72 hours
[2018-12-28] MEDS: SODIUM CHLORIDE 0.9% 1,000 ML IV SCH (12:36)
--- NOTE | 2018-12-28 14:02 | PN ---
PROGRESS NOTE DATE OF SERVICE: 12/28/2018 REASON FOR FOLLOWUP: Acute ruptured appendicitis with abdominal phlegmon. INTERVAL HISTORY: The patient is seen earlier this morning, the patient has been afebrile. The patient was breathing comfortably. Denies having any chest pain. No shortness of breath or cough. No nausea, no vomiting, no abdominal pain, no diarrhea. PHYSICAL EXAMINATION: Blood pressure is 142/80 with a pulse of 79, temperature 98.5. He is 97% on room air. General description is a middle-aged male, up in the bed in no distress. RESPIRATORY SYSTEM: Unlabored breathing, clear to auscultation anteriorly. HEART: S1, S2. Regular rate and rhythm. ABDOMEN: Soft, no tenderness. EXTREMITIES: No edema of the feet. LABS: Hemoglobin is 15.5, white count 17, BUN of 12, creatinine 0.83. DIAGNOSTIC IMPRESSION AND PLAN: Patient admitted to the hospital with abnormal CT done in outpatient setting with concern for ruptured appendicitis and phlegmon formation, but no definite abscess. The patient is currently switched to Invanz 1 g daily. Has been treated for outpatient for 2 weeks. The patient did have slight jump in white count that will be monitored closely with regular monitoring of his lab and continue supportive care. MMODL / IJN: [id number] /
--- NOTE | 2018-12-28 21:14 | DS ---
DISCHARGE SUMMARY DATE OF SERVICE: 12/28/2018. FINAL DIAGNOSES: 1. Right lower quadrant abdominal pain possible acute appendicitis, ruptured with abscess. 2. Rule out underlying colon cancer with focal phlegmon per CT scan. 3. Increased WBC. 4. Increased potassium. 5. Diabetes mellitus type 2. 6. Hyperlipidemia. 7. History of degenerative joint disease. 8. Remote history of nicotine dependence. 9. History of colonoscopy and polypectomy. DISCHARGE DISPOSITION: The patient will be discharged in stable condition with guarded prognosis. Total time taken 35 minutes. HISTORY OF PRESENT ILLNESS: This 63-year-old gentleman with a past medical history of multiple medical problems being followed by Dr. Pickering in the [facility], was admitted with abdominal pain. Findings as above. The patient had a suspected abscess in the right lower quadrant. The possibility of appendix perforation versus phlegmon related to colonic carcinoma was suspected. Surgery thought the presentation is most likely due to appendiceal perforation. They recommended IV antibiotics prior to surgery by the surgical team. The patient discharged in stable condition with guarded prognosis with PICC line IV antibiotics per surgical recommendations. Please refer to the surgery notes for further information. I discussed the case with Infectious Disease, Dr. Hartman as well who is following the patient closely in the hospital. On exam, vitals signs are stable. Cardiovascular: S1, S2. Abdomen soft. Nontender. No mass palpable. No guarding. No rigidity. bowel sounds present. NERVOUS SYSTEM: No focal deficit. LABORATORY DATA: WBC 17 and glucose 227 and CRP is 15.1. So, the patient will be discharged in stable condition with guarded prognosis. DISCHARGE ADVICE AND MEDICATIONS: 1. Diet is soft, bland per surgery. 2. Activity limited until followup. 3. Follow up with Dr. Pickering in 2-3 days. 4. Follow up with Dr. Hartman and Dr. Mojica as recommended. DISCHARGE MEDICATIONS: 1. Farxiga 10 mg p.o. daily. 2. Lipitor 20 mg q.h.s. 3. Super beta prostate 1 to 2 capsule p.o. b.i.d. 4. Vitamin C 2000 mg p.o. daily. 5. Invanz 1 g IV daily for 14 days. 6. Protonix 40 mg daily. 7. Tylenol 650 q.6h p.r.n. Follow up with surgery primary or the ER with any new symptoms. Once again, the patient will be discharged in stable condition with guarded prognosis. MMODL / IJN: [id number] / MTDD
== END 2018-12-28 13:01 | disposition home health service (06) | DRG 373 ==
LOC: EC 13:27 → 4MS4W 16:46 → OBSVTOIN 12-26 15:07
PROVIDERS: ADMIT Hospitalist; ATTEND Hospitalist
PROC: 05HC33Z Insertion of Infusion Device into Left Basilic Vein, Percutaneous Approach (ICD-10-PCS; principal; 2018-12-26 12:25)
DX: K35.32 Acute appendicitis with perforation, localized peritonitis, and gangrene, without abscess (principal); E87.5 Hyperkalemia; E11.9 Type 2 diabetes mellitus without complications; E78.5 Hyperlipidemia, unspecified; N40.0 Benign prostatic hyperplasia without lower urinary tract symptoms; M19.90 Unspecified osteoarthritis, unspecified site; D72.829 Elevated white blood cell count, unspecified; Z79.84 Long term (current) use of oral hypoglycemic drugs; Z79.899 Other long term (current) drug therapy; Z88.8 Allergy status to other drugs, medicaments and biological substances; Z87.891 Personal history of nicotine dependence; Z98.1 Arthrodesis status; Z96.612 Presence of left artificial shoulder joint; Z96.611 Presence of right artificial shoulder joint
CPT/HCPCS: 36410; 36415; 74177; 76937; 80048; 80053; 81003; 82105; 82378; 83605; 84153; 84154; 85025; 86140; 87040; 96365; 99285

== ENCOUNTER → 2019-01-19 | Outpatient (CLI) | payer BC, MEDICARE ==
--- NOTE | 2019-01-20 20:15 | CT ---
EXAMINATION TYPE: CT abdomen pelvis w con DATE OF EXAM: 01/19/2019 COMPARISON: 12/25/2018 HISTORY: 63-year-old male Follow up ruptured appendix. TECHNIQUE: Contiguous axial scanning of the abdomen and pelvis following administration of 100 ml Iso valentina 300 IV contrast. Delayed images through the kidneys and coronal/sagittal reconstructions perform ed. CT DLP: 1219.7 mGycm Automated exposure control for dose reduction was used. FINDINGS: Heart normal size without pericardial effusion. Strandy lower lung atelectasis. No pleural effusion. Low-attenuation of the liver suggesting fatty infiltration. No focal lesion. No biliary ductal dilata tion. Portal venous system is patent. Gallbladder, adrenal glands, kidneys, spleen, and pancreas appear within normal limits. No dilated small bowel, free fluid, or free air. There is residual but diminished change at the tip of the cecum with some centrally located mottled d ebris. The abnormality currently measures 4.6 cm wide by 4.1 cm AP by 3.7 cm craniocaudal (versus 6.2 x 7.0 x 5.2 cm, previously). There has been significant interval decrease in size though residual soft tissue abnormality remains and should continue to be assessed to ensure continued clearance. Oral contrast material progressed to the hepatic flexure of the colon. There is mild overall stool bu rden without any new pericolonic inflammatory change. Mild diverticular change along the proximal sig moid. No mesenteric or retroperitoneal lymphadenopathy. Mild atherosclerotic calcifications infrarenal abdominal aorta. Bladder urine distended. Prostate gland is enlarged measuring 6.8 cm wide with central calcification. No abnormal fluid collection in the pelvis or pelvic lymphadenopathy. Bones: Facet arthropathy lower lumbar spine. No osseous destructive process. IMPRESSION: 1. RESIDUAL INFLAMED SOFT TISSUE/PHLEGMONOUS CHANGE AT THE TIP OF THE CECUM MEASURING 4.6 X 4.1 X 3.7 CM (VERSUS 6.2 X 7.0 X 5.2 CM, PREVIOUSLY). WHILE THERE HAS BEEN SIGNIFICANT IMPROVEMENT, RESIDUAL S OFT TISSUE/INFLAMMATORY MASS REMAINS. SOME INTERNAL MOTTLED DEBRIS COULD REPRESENT STOOL OR FAT NECRO SIS. CONTINUED FOLLOW-UP RECOMMENDED TO ENSURE PROGRESSIVE INVOLUTION/CLEARANCE. 2. PROSTATOMEGALY (6.8 CM WIDE). CORRELATE WITH PATIENT'S SYMPTOMS AND PSA VALUES. PROSTATE ULTRASOUN D IF INDICATED. 3. MILD DIVERTICULAR CHANGE ALONG THE PROXIMAL SIGMOID.
== END | disposition home or self-care (01) ==
LOC: RADCTMAIN 07:53
PROVIDERS: ATTEND Internal Medicine Infectious Disease
DX: K57.30 Diverticulosis of large intestine without perforation or abscess without bleeding (principal); N40.0 Benign prostatic hyperplasia without lower urinary tract symptoms; R93.3 Abnormal findings on diagnostic imaging of other parts of digestive tract
CPT/HCPCS: 74177; Q9967 ×2

== ENCOUNTER → 2019-02-11 | Outpatient (CLI) | payer BC, MEDICARE ==
[2019-02-11 09:07] LABS: African American GFR (CKD) >90 (>60 ml/min/1.73 sqM); Blood Urea Nitrogen 15 mg/dL (9-20); Non-African American GFR(CKD) >90 (>60 ml/min/1.73 sqM)
--- NOTE | 2019-02-11 10:34 | CT ---
EXAMINATION TYPE: CT abdomen pelvis w con DATE OF EXAM: 02/11/2019 COMPARISON: 01/19/2019 HISTORY: Follow up for acute appendicitis with perforation and abscess. CT DLP: 1089.6 mGycm CONTRAST: CT scan of the abdomen and pelvis is performed with Oral Contrast and with IV Contrast, patient injec adelina with 100 mL of Isovue 300. FINDINGS: LUNG BASES-: No visible nodule. No infiltrate. LIVER/GB: No calcified gallstones. There is evidence of hepatic steatosis. No space occupying hepat ic lesion. Biliary tree is of normal caliber. PANCREAS: No inflammation. No distinct mass. SPLEEN: No splenic enlargement. No lesion seen. ADRENALS: No nodule. No thickening. KIDNEYS/BLADDER: No hydronephrosis. No nephrolithiasis. No distinct renal mass. Urinary bladder g rossly unremarkable. BOWEL: Phlegmon at the tip of the cecum persists and measures 2.3 x 1.8 cm versus prior measurement o f 4.6 x 4.1 x 3.7 cm. No evidence for abscess at this time. Small and large bowel are otherwise of no rmal caliber and appearance. No evidence for free air. GENITAL ORGANS: The prostate gland is enlarged. LYMPH NODES: No greater than 1cm abdominal or pelvic lymph nodes are appreciated. AORTA: No significant abnormality. OSSEOUS STRUCTURES: No significant abnormality is seen. OTHER: No significant additional abnormality is seen. IMPRESSION: 1. Phlegmon at the tip of the cecum persists and measures 2.3 x 1.8 cm versus prior measurement of 4. 6 x 4.1 x 3.7 cm. No evidence for abscess at this time.
== END | disposition home or self-care (01) ==
LOC: RADCTMAIN 07:39
PROVIDERS: ATTEND Internal Medicine Infectious Disease
DX: K35.32 Acute appendicitis with perforation, localized peritonitis, and gangrene, without abscess (principal)
CPT/HCPCS: 82565; 84520; 74177; 36415; Q9967

== ENCOUNTER 2019-02-22 08:49 | Day surgery (SDC) | payer BC, MEDICARE ==
--- NOTE | 2019-02-21 16:53 | P.GSHP ---
History of Present Illness H&P Date: 02/22/19 CHIEF COMPLAINT: Ruptured appendicitis HISTORY OF PRESENT ILLNESS: The patient is a 63-year-old male who presents with history of ruptured appendicitis. He was treated with prolonged antibiotics over 6 weeks. He presents for appendectomy. PAST MEDICAL HISTORY: See list. PAST SURGICAL HISTORY: See list. AC CURRENT MEDICATIONS: See list. ALLERGIES: See list. SOCIAL HISTORY: See list. FAMILY HISTORY: No Crohns disease and ulcerative colitis. REVIEW OF ORGAN SYSTEMS: CONSTITUTIONAL: No fever, no chills. Denies recent weight loss. HEENT: Denies any trouble with vision, hearing or nosebleeds. No difficulty swallowing. PHYSICAL EXAMINATION: GENERAL: A 63-year-old male in no acute distress. Pleasant. HEENT: No sclera icterus. Extraocular movements grossly intact. Moist buccal mucosa. Head is atraumatic, normocephalic. Hears conversational speech. No nasal drainage. NECK: Supple without lymphadenopathy. No JV distention. CHEST: Non-labored respirations and equal bilateral excursions. CARDIOVASCULAR: Regular rate and rhythm. Palpable 2+ radial pulses. ABDOMEN: Soft, non-tender at the right lower quadrant without guarding. MUSCULOSKELETAL: No clubbing, cyanosis or edema. NEUROLOGIC: No focal or lateralizing signs. PSYCH: Appropriate affect. Alert and oriented to person, place and time. SKIN: Well perfused. Good skin turgor. ASSESSMENT: 1. Ruptured appendicitis PLAN: 1. I have discussed benefits and risks of robotic appendectomy. 2. Bilateral SCDs. Thank you very much for allowing me to participate in the care of your patient. Past Medical History Past Medical History: Diabetes Mellitus, Hyperlipidemia Additional Past Medical History / Comment(s): ABD SINCE , ADMITTED WITH ACUTE APPENDISITIS ON 12/25/2018; TREATED WITH ANTIBIOTICS. DISABLED DO TO MULTIPLE CEVICAL AND SHOULDER SURGERIES. History of Any Multi-Drug Resistant Organisms: None Reported Past Surgical History: Orthopedic Surgery Additional Past Surgical History / Comment(s): PLATE TO LEFT LEG AND THEN REMOVED. CERVICAL FUSION X 3. RT SHOULDER X 3 THEN REPLACEMENT. LT SHOULDER X 4 AND REVERSE REPLACEMENT. COLLAR BONE SX. COLONOSCOPY Past Anesthesia/Blood Transfusion Reactions: No Reported Reaction Past Psychological History: No Psychological Hx Reported Smoking Status: Former smoker Past Alcohol Use History: None Reported Additional Past Alcohol Use History / Comment(s): QUIT SMOKING 30 YEARS AGO-WAS UP TO 3 PPD. RECOVERED ALCOHOLIC Past Drug Use History: None Reported - Past Family History Father Family Medical History: Cancer Medications and Allergies Home Medications Medication Instructions Recorded Confirmed Type Ascorbic Acid [Vitamin C] 2,000 mg PO DAILY 01/24/18 02/15/19 History Atorvastatin [Lipitor] 20 mg PO HS 01/24/18 02/15/19 History Super Beta Prostate 2 cap PO BID 01/24/18 02/15/19 History Dapagliflozin Propanediol [Farxiga] 10 mg PO QAM 12/25/18 02/15/19 History Ciprofloxacin [Cipro Susp] 500 mg PO BID 02/15/19 02/15/19 History Tamsulosin [Flomax] 0.4 mg PO QAM 02/15/19 02/15/19 History metroNIDAZOLE [Flagyl] 500 mg PO TID 02/15/19 02/15/19 History Allergies Allergy/AdvReac Type Severity Reaction Status Date / Time metformin AdvReac Nausea & Verified 02/15/19 10:41 Vomiting & Diarrhea
[~2019-02-22 08:49] MED LIST changes: +ACETAMINOPHEN TAB 500 MG TAB PO STA; +DEXAMETHASONE SOD PHOSPHATE 10 MG/ML 1 ML VIAL IV ONE; +GABAPENTIN 300 MG CAP PO STA; +HYDROmorphone 0.5 MG/0.5 ML SYRINGE IVP PRN; -LACTATED RINGERS 1,000 ML IV SCH; +LIDOCAINE 1% 20 ML VIAL (10MG/ML) FOR IV START INTRADERMA PRN; +MIDAZOLAM 2 MG/2 ML VIAL IV PRN; +ONDANSETRON 4 MG/2 ML VIAL IVP ONE; +TAMSULOSIN 0.4 MG CAP.ER.24H PO ONE; +metroNIDAZOLE-NS PMX 500 MG in SALINE 1 100ML.BAG IVPB ONE
[2019-02-22] MEDS: LACTATED RINGERS 1,000 ML IV SCH ×3 (09:30→14:45)
[2019-02-22 09:45] LABS: Glucose,Whole Blood 143 mg/dL (75-99)
[2019-02-22 09:56] LABS: Basophils # (A) 0.1 k/uL (0-0.2); Basophils % (A) 1 %; Eosinophils # (A) 0.3 k/uL (0-0.7); Eosinophils % (A) 4 %; HCT 52.7 % (39.0-53.0); HGB 18.2 gm/dL (13.0-17.5); Lymphocytes # (A) 1.9 k/uL (1.0-4.8); Lymphocytes % (A) 25 %; MCH 32.9 pg (25.0-35.0); MCHC 34.6 g/dL (31.0-37.0); MCV 95.2 fL (80.0-100.0); Mean Platelet Volume 7.9; Monocytes # (A) 0.6 k/uL (0-1.0); Monocytes % (A) 8 %; Neutrophils # (A) 4.6 k/uL (1.3-7.7); Neutrophils % (A) 61 %; Platelet Count 238 k/uL (150-450); RBC 5.54 m/uL (4.30-5.90); WBC 7.6 k/uL (3.8-10.6)
[2019-02-22] MEDS ORDERED: PHENYLEPHRINE-0.9% NACL SYG 1 MG/10 ML SYRINGE ONE (10:32)
[2019-02-22] MEDS ORDERED: LIDOCAINE 1% INJ 10MG/ML (20 ML MDV) ONE (10:32)
[2019-02-22] MEDS ORDERED: SUCCINYLCHOLINE CHLORIDE 100 MG/5 ML SYR IV ONE (10:32)
[2019-02-22] MEDS ORDERED: GLYCOPYRROLATE 0.2 MG/ML 2 ML VIAL ONE (10:32)
[2019-02-22] MEDS ORDERED: MIDAZOLAM 2 MG/2 ML VIAL ONE (10:32)
[2019-02-22] MEDS ORDERED: fentaNYL (PF) 50 MCG/ML 2 ML AMP ONE (10:32)
[2019-02-22] MEDS ORDERED: PROPOFOL 10 MG/ML 20 ML VIAL IV ONE (10:32)
[2019-02-22] MEDS ORDERED: ROCURONIUM BROMIDE 10 MG/ML 10 ML VIAL IV ONE (10:32)
[2019-02-22] MEDS ORDERED: KETOROLAC 30 MG/ML 1 ML VIAL ONE (10:32)
[2019-02-22] MEDS ORDERED: NEOSTIGMINE 1 MG/ML 10 ML VIAL ONE (10:32)
[2019-02-22] MEDS ORDERED: BUPIVACAIN-EPI 0.25%-1:200,000 30 ML VIAL SQ ONE (11:23)
[2019-02-22] MEDS ORDERED: HYDROcodone/APAP 5-325MG 1 EACH TAB PO PRN (12:29)
[2019-02-22] MEDS ORDERED: NALOXONE 0.4 MG/ML 1 ML VIAL IV PRN (12:29)
[2019-02-22] MEDS ORDERED: INSULIN ASPART (NovoLOG) 100 UNIT/ML VIAL SQ SCH (12:30)
--- NOTE | 2019-02-22 12:34 | P.OP ---
Date of Procedure: 02/22/19 Preoperative Diagnosis: History of ruptured appendicitis Postoperative Diagnosis: Same, phlegmon, periappendiceal abscess Procedure(s) Performed: Robotic lysis of adhesions, over 1 hour, drainage of periappendiceal abscess Anesthesia: GETA, local Surgeon: Kelley Mojica Estimated Blood Loss (ml): 5 Pathology: other (Aerobic and anaerobic cultures) Condition: stable Disposition: floor Operative Findings: 1. Contained periappendiceal abscess drained 2. Appendix completely fused to sidewall of colon
[2019-02-22 12:41] VITALS: TEMP 97.9
[2019-02-22 13:08] LABS: Glucose,Whole Blood 218 mg/dL (75-99)
[2019-02-22] MEDS ORDERED: INSULIN ASPART (NovoLOG) 100 UNIT/ML VIAL SQ ONE (13:17)
[2019-02-22 13:47] VITALS: RESP 18
[2019-02-22] MEDS ORDERED: KETOROLAC 30 MG/ML 1 ML VIAL IVP SCH (14:00)
[2019-02-22 14:01] LABS: Glucose,Whole Blood 224 mg/dL (75-99)
[2019-02-22 14:27] VITALS: BP 124/67; PULSE 106
--- NOTE | 2019-02-22 19:47 | P.OP ---
Date of Procedure: 02/22/19 Description of Procedure: SURGEON: KELLEY MOJICA MD Preoperative Diagnosis: 1. History of ruptured appendicitis with phlegmon 2. Diabetes mellitus type 2, uncontrolled 3. Previous history of prolonged IV antibiotics 4. Benign prostatic hypertrophy with lower obstructive symptoms 5. Obesity due to excess calories, BMI 30.8 Postoperative Diagnosis: 1. History of ruptured appendicitis with phlegmon 2. Diabetes mellitus type 2, uncontrolled 3. Previous history of prolonged IV antibiotics 4. Benign prostatic hypertrophy with lower obstructive symptoms 5. Obesity due to excess calories, BMI 30.8 6. Peritoneal adhesions due to previous infection 7. Periappendiceal abscess right lower quadrant Procedure(s) Performed: 1. Robotic-assisted daVinci Xi laparoscopic attempted appendectomy converted to lysis of adhesions over 1 hour 2. Robotic-assisted daVinci Xi laparoscopic drainage of appendiceal abscess Anesthesia: GETA, local Surgeon: Kelley Mojica Estimated Blood Loss (ml): 5 Pathology: other (Aerobic and anaerobic cultures) Condition: stable Disposition: home Operative Findings: 1. Contained periappendiceal abscess drained 2. Appendix completely fused to sidewall of colon INDICATIONS: The patient is a 63-year-old female with prior history of ruptured appendicitis. He presents for interval appendectomy. He had prolonged IV antibiotics including oral antibiotics use. Benefits and risks, including infection, open surgery, and bleeding for additional surgery was discussed at length. Informed consent was obtained. All questions of the patient and family were answered. DESCRIPTION: The patient was transferred to the operating room and placed in supine position. The patient had previously voided. The abdomen was then prepped and draped in standard sterile fashion as Ioban was placed along the abdomen to minimize any contamination of skin floor. After a timeout protocol was performed, attention was then brought to the left upper quadrant whereby a 0 degree 5 mm laparoscopic trocar entry was performed. The abdominal cavity was entered and insufflated to 15 mmHg pressure, which was tolerated well. Diagnostic laparoscopy demonstrated no injury to bowel, viscera or mesentery. Next a robotic 12-mm trocar was placed along the left lower quadrant, 15-cm lateral to the midline. Two 8 mm ports were placed along the left lateral abdominal wall. Ports were placed 10 cm apart from each other including 15-20 cm away from the target anatomy of the right pelvis. The patient was then placed in Trendelenburg position, at least 10 down and right side up at least 6. The robotic da Joshua XI system was primed and docked along the left side of the patient. Using atraumatic graspers and vessel sealer, the robotic system was docked and primed as described. Instruments were interchanged by the child center assistant including graspers, robotic stapler and vessel sealer. Next, attention was brought to identify the cecum. A systematic view within the abdominal cavity was started with the small bowel. The terminal ileum leading into the cecum had dense adhesions found along the lateral sidewall including the right pelvic wall. Separate peritoneal adhesions were found of the greater omentum to the right abdominal wall which were addressed using vessel sealer for lysis of adhesions. Using a combination of blunt dissection with a grasper including vessel sealer, a pocket consistent with periappendiceal abscess was identified and drained, primarily clear. The appendix was obliterated into the base and sidewall of the cecum without any clear dissection planes for resection. Careful dissection occurred for at least 1 hour for lysis of adhesions with all drainage of any remaining periappendiceal abscess. Hemostasis was checked prior to undocking the robot. The robot was undocked. I re-scrubbed into the case. All instruments and pneumoperitoneum were evacuated from the abdominal cavity. Local anesthetic was infiltrated to all wounds for postop analgesia. All incisions were also cleansed with diluted hydrogen peroxide. The incisions were closed with 4-0 Monocryl. Exofin glue was applied to the rest of the skin incisions. The patient had tolerated the procedure well. The patient was extubated successfully. The patient was transferred to the postanesthesia care unit in stable condition. Intraoperative findings were shared with the patient and family including co mpleting remaining oral doses of antibiotics. Close observation advised. Plan - Discharge Summary Discharge Rx Participant: No New Discharge Prescriptions: Continue Atorvastatin [Lipitor] 20 mg PO HS Super Beta Prostate 2 cap PO BID Ascorbic Acid [Vitamin C] 2,000 mg PO DAILY Dapagliflozin Propanediol [Farxiga] 10 mg PO QAM metroNIDAZOLE [Flagyl] 500 mg PO TID Tamsulosin [Flomax] 0.4 mg PO QAM Ciprofloxacin [Cipro Susp] 500 mg PO BID Discharge Medication List Ascorbic Acid [Vitamin C] 2,000 mg PO DAILY 01/24/18 [History] Atorvastatin [Lipitor] 20 mg PO HS 01/24/18 [History] Super Beta Prostate 2 cap PO BID 01/24/18 [History] Dapagliflozin Propanediol [Farxiga] 10 mg PO QAM 12/25/18 [History] Ciprofloxacin [Cipro Susp] 500 mg PO BID 02/15/19 [History] Tamsulosin [Flomax] 0.4 mg PO QAM 02/15/19 [History] metroNIDAZOLE [Flagyl] 500 mg PO TID 02/15/19 [History] Follow up Appointment(s)/Referral(s): Kelley Mojica MD [STAFF PHYSICIAN] - 02/28/19 (FOLLOW UP ON 02/28/[address] MOJICA AT 4:00) Patient Instructions/Handouts: *Surgery [facility] - (Anesthesia) Discharge Instructions Outpatient Surgery, Lysis of Abdominal Adhesions (DC) Activity/Diet/Wound Care/Special Instructions: No lifting over 10 pounds in 2 weeks until 03/08/19. May shower. No bath tub soaks for two weeks until 03/08/19 Diet as tolerated. Use Tylenol and ibuprofen scheduled for the next 24-48 hours for best pain reli ef. Use ice along incisions for the today to prevent swelling. Discharge Disposition: HOME SELF-CARE
[2019-02-23] MEDS ORDERED: TAMSULOSIN 0.4 MG CAP.ER.24H PO SCH (08:30)
[2019-02-23] MEDS ORDERED: ENOXAPARIN 40 MG/0.4 ML SYRINGE SQ SCH (09:00)
== END 2019-02-22 15:00 | disposition home or self-care (01) ==
LOC: OR 08:49 → 4SSUR 12:29 → UNDOADMIN 12:29 → UNDODISIN 15:00 → OR 15:00
PROVIDERS: ATTEND Surgery Plastic and Reconstructive Surgery
DX: K35.33 Acute appendicitis with perforation, localized peritonitis, and gangrene, with abscess (principal); K66.0 Peritoneal adhesions (postprocedural) (postinfection); E11.9 Type 2 diabetes mellitus without complications; E78.5 Hyperlipidemia, unspecified; Z87.891 Personal history of nicotine dependence; N40.1 Benign prostatic hyperplasia with lower urinary tract symptoms; N13.8 Other obstructive and reflux uropathy; E66.9 Obesity, unspecified; Z68.30 Body mass index [BMI] 30.0-30.9, adult; Z79.84 Long term (current) use of oral hypoglycemic drugs; Z96.611 Presence of right artificial shoulder joint; Z79.899 Other long term (current) drug therapy; Z88.8 Allergy status to other drugs, medicaments and biological substances
CPT/HCPCS: 85025; 87070; 87205; 87075; 44979; J2250; J1100; J2710; J0690; J2405; J2001; J3010; J1885; J2370; J0330; J2704

== ENCOUNTER 2023-01-13 08:33 | Day surgery (SDC) | payer BC, MEDICARE ==
[2023-01-11 11:29] VITALS: BMI 29.7
[~2023-01-13 08:33] MED LIST changes: -ACETAMINOPHEN TAB 500 MG TAB PO STA; -DEXAMETHASONE SOD PHOSPHATE 10 MG/ML 1 ML VIAL IV ONE; -GABAPENTIN 300 MG CAP PO STA; -HYDROmorphone 0.5 MG/0.5 ML SYRINGE IVP PRN; +LIDOCAINE 1% (10MG/ML) FOR IV START INTRADERMA PRN; -LIDOCAINE 1% 20 ML VIAL (10MG/ML) FOR IV START INTRADERMA PRN; -MIDAZOLAM 2 MG/2 ML VIAL IV PRN; -ONDANSETRON 4 MG/2 ML VIAL IVP ONE; -TAMSULOSIN 0.4 MG CAP.ER.24H PO ONE; -metroNIDAZOLE-NS PMX 500 MG in SALINE 1 100ML.BAG IVPB ONE
[2023-01-13] MEDS: LACTATED RINGERS 1,000 ML IV SCH ×2 (08:57→10:06)
[2023-01-13 09:09] LABS: Glucose,Whole Blood 158 mg/dL (70-110)
[2023-01-13 09:10] VITALS: TEMP 97.3
[2023-01-13] MEDS ORDERED: PROPOFOL 10 MG/ML 20 ML VIAL IV ONE (10:07)
--- NOTE | 2023-01-13 10:29 | P.PCN ---
Date of Procedure: 01/13/23 Procedure(s) Performed: BRIEF HISTORY: Patient is a 67-year-old pleasant male scheduled for an elective colonoscopy as a part of screening for colon cancer. PROCEDURE PERFORMED: Colonoscopy with snare polypectomy. PREOPERATIVE DIAGNOSIS: Screening for colon cancer. IV sedation per Anesthesia. PROCEDURE: After informed consent was obtained, the patient, was brought into the endoscopy unit. IV sedation was administered by Anesthesia under continuous monitoring. Digital rectal examination was normal. Initially the Olympus CF-160 flexible video colonoscope was then inserted in the rectum, gradually advanced into the cecum without any difficulty. Careful examination was performed as the scope was gradually being withdrawn. Ileocecal valve and the appendiceal orifice were visualized and appeared normal. Prep was excellent. Mucosa of the cecum, ascending colon appeared normal. In the hepatic flexure there was a 1.2 cm polyp that was removed by snare polypectomy. Rest of the, transverse colon, descending colon, appeared normal. In the sigmoid: There was a 3 mm and 4 mm sessile polyps removed by cold snare polypectomy. Scattered sigmoid diverticulosis seen. sigmoid colon, and rectum appeared normal. Retroflexion was performed in the rectum and no lesions were seen. The patient tolerated the procedure well. IMPRESSION: 1.2 cm hepatic flexure polyp status post polypectomy 3 mm and 4 mm sigmoid: Polyp status post cold snare polypectomy Scattered sigmoid diverticulosis RECOMMENDATIONS: Findings of this examination were discussed with the patient as well as his family. He was advised to follow up with the biopsy results. If the biopsy reveals adenoma he can have a repeat colonoscopy in 3 years.
[2023-01-13 10:55] VITALS: BP 142/80; PULSE 72; RESP 20
== END 2023-01-13 11:01 | disposition home or self-care (01) ==
LOC: ORWHC2ENDO 08:33
PROVIDERS: ATTEND Internal Medicine Gastroenterology
DX: Z12.11 Encounter for screening for malignant neoplasm of colon (principal); D12.3 Benign neoplasm of transverse colon; D12.5 Benign neoplasm of sigmoid colon; K57.30 Diverticulosis of large intestine without perforation or abscess without bleeding; I10 Essential (primary) hypertension; E78.5 Hyperlipidemia, unspecified; E11.9 Type 2 diabetes mellitus without complications; K21.9 Gastro-esophageal reflux disease without esophagitis; Z79.899 Other long term (current) drug therapy
CPT/HCPCS: 45385; J2704; 88305